=== PATIENT | female | born 1995 | race Caucasian/White ===

== ENCOUNTER → 2018-10-06 | Outpatient (CLI) | payer OTHER ==
[~2018-10-06] VITALS: Ht 162.6 cm; Wt 84.9 kg
[~2018-10-06] MED LIST: IBUPROFEN 200200 M1 PO; IBUPROFEN 800800 M1 PO; SPRINTEC1 EACH PO
--- NOTE | ~2018-10-06 | HPC ---
[facility] [address] [place] [address] PAIN MANAGEMENT CONSULTATION Name: CLAUDIA HAINES Room #: REG [facility]#: [id number] Admission: 10/06/18 ������������������ Attend Phys: Jigar Cook DO Discharge: ������������������ Date of : 95 Report #: [id number] THIS REPORT FOR: //name// CC: Jigar BETHEA DATE OF SERVICE: 10/06/2018 CHIEF COMPLAINT: Low back pain, right lower extremity pain and paresthesias. HISTORY OF PRESENT ILLNESS: As you know, the patient is a very pleasant 22-year-old female returning in followup visit requesting to undergo next in the series of transforaminal epidural injections under fluoroscopic guidance. The last visit the patient was at our clinic was 01/23/2016, where she underwent a right transforaminal epidural injection under fluoroscopic guidance, which provided excellent benefit. She reports that her pain began to return approximately 2 weeks ago. She is now placing her pain score at 4/10. She has been doing great since the previous evaluation and treatment. She returns requesting next in the series of epidural injections. She reports near 100% improvement in overall pain, lasting for almost 2-1/2 years. She denies new injury or trauma that may have led to symptom recurrence. ALLERGIES: SHELLFISH. CURRENT MEDICATIONS: Sprintec 1 tab per day, ibuprofen 200 mg 2 tabs 3 times a day. SOCIAL HISTORY: The patient denies tobacco, alcohol, IV or illicit drug use. She is a full-time student. She is accompanied by her mom, who is present in the room today. IMAGING: No new imaging available. PHYSICAL EXAMINATION: VITAL SIGNS: Blood pressure 110/74, pulse 62, respiratory rate 14 and unlabored. The patient is 100% on room air. Height 5 feet 4 inches tall, weight 187.2 pounds and BMI calculated 32.1. GENERAL: Well-developed, well-nourished and well-hydrated 22-year-old female, appearing stated age, pain is rated around 4/10. HEENT: Normocephalic, atraumatic. Pupils equal, round and reactive to light. Extraocular muscles are intact. Sclerae nonicteric, without injection. EXTREMITIES: Show no clubbing, no cyanosis and no edema. MUSCULOSKELETAL: Lower extremity strength is symmetrical, 5/5. Muscle bulk and tone equal and symmetrical in comparing the left lower extremity to the right. Seated straight leg raising negative. Supine straight leg raising positive on [address] [address] PAIN MANAGEMENT CONSULTATION Name: CLAUDIA HAINES Room #: REG [facility]#: [id number] Admission: 10/06/18 ������������������ Attend Phys: Jigar Cook DO Discharge: ������������������ Date of : 95 Report #: [id number] the right at approximately 70-degree angle. Ankle clonus negative. Babinski is negative. ASSESSMENT: 1. Lumbar radiculopathy. 2. Lumbosacral spondylosis with radicular symptoms. 3. Recurrent pain. PLAN: 1. The patient has returned today in followup visit, having been lost to followup since 01/23/2016, where she underwent a right transforaminal epidural injection under fluoroscopic guidance, with excellent improvement in symptoms, 100% improvement in overall pain, lasting almost 2-1/2 years. Unfortunately, her symptoms have begun to return. She denies new injury or trauma. She has returned requesting to undergo a transforaminal epidural injection under fluoroscopic guidance. We have discussed the risks and the benefits of this procedure. She states understood and wished to proceed. 2. No medication changes made at today's visit. The patient will continue current medical therapy as previously prescribed. 3. We will see the patient back in followup visit on an as-needed basis for possible next in the series of transforaminal epidural injections. PROCEDURE NOTE DESCRIPTION OF PROCEDURE: Right L5-S1 transforaminal epidural injection under fluoroscopic guidance. After obtaining written consent, the patient was taken back to the fluoroscopy suite, placed in prone position with pillow under abdomen to decrease lumbar lordosis. Skin overlying the lumbosacral area then prepped and draped in an aseptic fashion. The L5 vertebral body and sacrum were identified using oblique fluoroscopy. The 6 o'clock position of the pedicle was then identified and marked with a sterile marker. The skin and subcutaneous tissue were then anesthetized with 3 mL of 1% lidocaine. Using a tunneled view, a 22-gauge 4-1/2-inch Tuohy needle was advanced under fluoroscopic guidance towards the L5-S1 epidural space on the right side. Final position of the needle was identified using AP and lateral views. There was no pain or paresthesias noted with positioning of the needle. No contrast agent was used in today's procedure due to ALLERGY TO SHELLFISH. AP and lateral imaging demonstrated excellent position of the Tuohy needle within the "safe triangle" of the L5-S1 neural foramen. After negative aspiration for heme or cerebrospinal fluid, 3 mL of a solution containing 1 mL 40 mg per mL 40 mg total triamcinolone and 2 mL bupivacaine 0.5% was injected slowly. Needle retracted approximately half way, flushed with 1 mL of 1% lidocaine and then removed. [address] [address] PAIN MANAGEMENT CONSULTATION Name: CLAUDIA HAINES [facility] [id number] Admission: 10/06/18 ������������������ Attend Phys: Jigar Cook DO Discharge: ������������������ Date of : 95 Report #: [id number] Sterile bandage placed over the injection site. No new motor deficits present in the lower extremity following the procedure. The patient tolerated the procedure well, carefully escorted to the recovery room in stable condition. No apparent complications. After meeting discharge criteria, the patient discharged home. ��������������������������������������������� ���������������������������������������� By: ��������������������������������������������� 1606 0030 Jigar Cook DO /nt
[2018-10-06 11:17] VITALS: BP 110/74
--- NOTE | 2018-10-06 11:30 | NUR ---
Pain Clinic Assessment: 1. History of Osteoarthritis: Not Applicable History of Rheumatoid Arthritis: Not Applicable 2. Height: 5 ft. 4 in. 162.6 cm. Weight: 187.2 lb. oz. 84.913 kg. Patient's BMI: 32.1 3. Vital Signs: BP: 110/74 Pulse: 62 Resp: 14 Temp: 02 Sat: 100 ECG Mon: 4. Pain Intensity: 4 5. Fall Risk: Dizziness: N Needs help standing or walking: N Fallen in the last 3 months: N Fall risk comments: 6. Patient on Blood Thinner: None 7. History of Hypertension: N 8. Opioid Therapy greater than 6 weeks: N Opiate Contract Signed: 9. Risk Assessment Tool Provided: 0-low 10. Functional Assessment Tool: 11. Recreational Drug Use: Never Drug Type: Tobacco Use: Never Smoker Tobacco Type: Amount or Packs/day: How Many Years: Alcohol Use: Yes Frequency: Weekly Quant: 5 beers
== END | disposition home or self-care (01) ==
LOC: PAIN 06:47
DX: M47.27 Other spondylosis with radiculopathy, lumbosacral region (principal); G89.29 Other chronic pain; Z98.890 Other specified postprocedural states; Z79.899 Other long term (current) drug therapy

== ENCOUNTER → 2020-09-19 | Outpatient (CLI) | payer OTHER ==
[~2020-09-19] VITALS: Ht 160 cm; Wt 98.1 kg
[2020-09-19 09:23] VITALS: BP 127/75
--- NOTE | 2020-09-19 09:44 | NUR ---
Pain Clinic Assessment: 1. History of Osteoarthritis: Not Applicable History of Rheumatoid Arthritis: Not Applicable 2. Height: 5 ft. 3 in. 160.0 cm. Weight: 216.2 lb. oz. 98.068 kg. Patient's BMI: 38.3 3. Vital Signs: BP: 127/75 Pulse: 70 Resp: 14 Temp: 02 Sat: 98 ECG Mon: 4. Pain Intensity: 7-8 W/ACTIVITY 5. Fall Risk: Dizziness: N Needs help standing or walking: N Fallen in the last 3 months: N Fall risk comments: \ 6. Patient on Blood Thinner: None 7. History of Hypertension: N 8. Opioid Therapy greater than 6 weeks: N Opiate Contract Signed: 9. Risk Assessment Tool Provided: 0-low 10. Functional Assessment Tool: 11. Recreational Drug Use: Never Drug Type: Tobacco Use: Never Smoker Tobacco Type: Amount or Packs/day: How Many Years: Alcohol Use: Yes Frequency: Weekly Quant: 1-2
--- NOTE | 2020-09-26 09:33 | HPC ---
[facility] [place] [address] PAIN MANAGEMENT CONSULTATION Name: CLAUDIA HAINES [place] Room #: REG [facility]#: [id number] Admission: 09/19/20 Attend Phys: Jigar Cook DO Discharge: Date of : 95 Report #: [id number] THIS REPORT FOR: cc: DEANNA BETHEA DO Physician not on staff Jigar Cook DO ~ DOC #: [id number] Jigar Cook DO DATE OF SERVICE: 09/19/2020 CHIEF COMPLAINT: Low back pain, right lower extremity pain with paresthesias. HISTORY OF PRESENT ILLNESS: Of note, the patient is a very pleasant 24-year-old female returning in followup visit requesting to undergo lumbar epidural injection under fluoroscopic guidance. The patient reported previous injection provided on 10/06/2018 gave 75% improvement in overall pain. Unfortunately, her symptoms have begun to return. She returns today in followup visit, requesting a lumbar epidural injection under fluoroscopic guidance to address lumbar radicular symptoms for which she places pain score 7 and 8/10. ALLERGIES: SHELLFISH. CURRENT MEDICATIONS: Sprintec 1 tab per day, ibuprofen 200 mg 2 tabs 3 times a day. SOCIAL HISTORY: The patient denies tobacco, alcohol or IV or illicit drug use. She is working, not receiving workmen's compensation, unaccompanied today. IMAGING: No new imaging available. PHYSICAL EXAMINATION: VITAL SIGNS: Blood pressure 127/75, pulse 70, respiratory rate 14 and unlabored. The patient 98% on room air. Height 5 feet 3 inches tall, weight 216.2 pounds, BMI calculated 38.3. GENERAL: Well-developed, well-nourished, well-hydrated exogenously obese 24-year-old female appearing stated age, pain is rated anywhere from 7-8/10. HEENT: normocephalic, atraumatic. Pupils are round and responsive. She is wearing a mask in compliance with COVID-19 regulations. EXTREMITIES: Show no clubbing, no cyanosis. No appreciable edema. MUSCULOSKELETAL: Lower extremity strength is symmetrical again today 5/5. Muscle bulk and tone is symmetrical in comparing lower extremities. Seated straight leg raising negative. Supine straight leg raising positive on the right. Mike's test is negative. Modified Gaenslen's positive for axial low back pain. ASSESSMENT: 1. Symptomatic lumbar radiculopathy. [address] [address] PAIN MANAGEMENT CONSULTATION Name: CLAUDIA HAINES Room #: REG [facility]#: [id number] Admission: 09/19/20 Attend Phys: Jigar Cook DO Discharge: Date of : 95 Report #: [id number] 2. Lumbosacral spondylosis with radiculopathy. 3. Chronic intractable pain. PLAN: The patient returns today in followup visit requesting to undergo lumbar epidural injection under fluoroscopic guidance. Previous epidural injection gave 75% improvement in overall pain with good and prolonged efficacy. Unfortunately, her symptoms have begun to return. No inciting injury or trauma. She returns today in followup visit to undergo next in the series of epidural injections. The patient has been advised risks and benefits of a lumbar epidural injection. These risks include, but are not necessarily limited to; bleeding, bruising, infection, worsening pain, no relief of pain, temporary or permanent, muscle weakness, temporary or permanent nerve damage, possible paralysis, post-dural puncture headache and . The patient states understood and wished to proceed. 1. No medication changes made at today's visit. The patient will continue current medical therapy as prior prescribed. 2. We will see the patient back for a followup visit on an as needed basis for the next in the series of lumbar epidural injections. We are hopeful the patient will see good and prolonged benefit once again with the epidural injection provided today. PROCEDURE NOTE DESCRIPTION OF PROCEDURE: L5-S1 interlaminar epidural steroid injection under fluoroscopic guidance. This is the first procedure of the second series that the patient is undergoing. After obtaining written consent, the patient was taken back to the fluoroscopy suite, placed in a prone position with pillow under the abdomen to decrease lumbar lordosis. The skin overlying the lumbosacral area was then prepped and draped in aseptic fashion. The L5-S1 vertebral interspace was then identified by AP fluoroscopy. The skin and subcutaneous tissue overlying the target site of injection was anesthetized with 3 mL 1% lidocaine. A(n) 20 gauge 3.5 Tuohy needle was then advanced under fluoroscopic guidance towards the epidural space using a right parasagittal approach. The epidural space was identified using loss of resistance to air technique. After negative aspiration for heme or cerebrospinal fluid, a total of 1 mL of Omnipaque was injected. A lumbar epidurogram was confirmed using both AP and lateral fluoroscopy. After negative aspiration for heme or cerebrospinal fluid, 5 mL solution containing 2 mL 40 mg per mL 80 mg total triamcinolone along with [address] [address] PAIN MANAGEMENT CONSULTATION Name: CLAUDIA HAINES Room #: REG [facility]#: [id number] Admission: 09/19/20 Attend Phys: Jigar Cook DO Discharge: Date of : 95 Report #: [id number] of lidocaine 1% was injected in increments. Contrast spread was noted posterior epidural space. The needle was then retracted approximately half way and needle tract flushed with 1 mL of 1% lidocaine. Needle was then removed. There were no apparent sensory or motor deficits in the lower extremity following the procedure. A sterile bandage was placed over the injection site. The heart rate, pulse, oximetry and blood pressure were continuously monitored after the procedure. There were no apparent complications. The patient tolerated the procedure well and was carefully escorted to the recovery room in stable condition. There were no apparent complications. After meeting discharge criteria, the patient was then discharged home. Jigar Cook DO JEJ/ROJAS <ELECTRONICALLY SIGNED> By: Jigar Cook DO 09/26/20 0933 [id number] Jigar Cook DO /nt
== END | disposition home or self-care (01) ==
LOC: PAIN 09-06 14:05
PROVIDERS: ATTEND Anesthesiology Pain Medicine
DX: M47.27 Other spondylosis with radiculopathy, lumbosacral region (principal); G89.29 Other chronic pain; Z98.890 Other specified postprocedural states; Z79.899 Other long term (current) drug therapy